=== PATIENT | male | born 1950 | race Caucasian/White ===

== ENCOUNTER → 2024-12-28 | Outpatient (CLI) | payer MEDICARE | END | disposition home or self-care (01) | LOC: LABWHC1 09:19 | PROVIDERS: ATTEND Urology | DX: R97.20 Elevated prostate specific antigen [PSA] (principal) | CPT/HCPCS: 36415; 84153; 84154 ==

== ENCOUNTER → 2025-01-25 | Outpatient (CLI) | payer MEDICARE ==
--- NOTE | 2025-01-25 08:16 | MR ---
EXAMINATION TYPE: MR Prostate wo/w con DATE OF EXAM: 01/25/2025 6:49 AM COMPARISON: None. CLINICAL INDICATION: Male, 74 years old with history of R97.20 ELEVATED PSA; Elevated PSA TECHNIQUE: Multi-planar, multi-sequence imaging of the pelvis is performed prior to and following the uncomplicated administration of bolus intravenous gadolinium. IV Contrast: 6 mL Gadobutrol Interpretive Criteria: PI-RADS v2.1 SERUM PSA: 10/2024=5.28, 10/2023=3.54 SURGICAL PATHOLOGY: No data available. FINDINGS: Prostatic dimensions: 5.2 x 6.9 x 4.4 cm. Ellipsoid Volume:82.66 (PSA density=0.06 ng/mL/mL) CENTRAL GLAND (Central and Transition Zones/CZ+TZ): Multiple bilateral, heterogenous appearing hypertrophic stromal nodules, without suspicious lesion. M edian lobe hypertrophy with protrusion into the base of the bladder. (PI-RADS 2) PERIPHERAL ZONE (PZ): Bilateral linear, indistinct wedgelike areas of low ADC, and low T2 signal, No evidence of masslike a bnormality, or localized perfusional hypervascularity, to further suggest a focus of clinically signi ficant prostate cancer. (PI-RADS 2) SEMINAL VESICLES (SV): Symmetric and unremarkable. PERIPROSTATIC TISSUES: Unremarkable. LYMPH NODES: No enlarged pelvic lymph node. REMAINING PELVIS: Bladder wall is within normal limits given distention. No abnormal free or organized intrapelvic fluid collection. No pathologic bowel dilation or mural thickening. No hernia visualized, there are fatty changes to the inguinal canals right greater than left. Large amount stool throughout the visualized colon. OSSEOUS STRUCTURES: No suspicious osseous abnormality. IMPRESSION: 1. No specific features for high-risk prostate cancer. Maximum PI-RADS score: 2. 2. Substantial BPH, estimated gland volume 82.66 mL. 3. No suspicious osseous lesion. No lymphadenopathy. No evidence of prostate adenocarcinoma involving the periprostatic tissues. [facility], , 01/25/2025 8:13 AM
== END | disposition home or self-care (01) ==
LOC: RADMRIMAIN 05:56
PROVIDERS: ATTEND Urology
DX: N40.0 Benign prostatic hyperplasia without lower urinary tract symptoms (principal); R97.20 Elevated prostate specific antigen [PSA]
CPT/HCPCS: 72197; A9585

== ENCOUNTER → 2025-04-05 | Day surgery (SDC) | payer MEDICARE ==
[2025-04-01 12:49] VITALS: BMI 19.4
[~2025-04-05] MED LIST: HYDROcodone/APAP 5-325MG 1 EACH TAB PO PRN; LIDOCAINE 1% INJ 10MG/ML (20 ML MDV) ONE; MIDAZOLAM 2 MG/2 ML VIAL ONE; NALOXONE 0.4 MG/ML 1 ML VIAL IV PRN; PHENYLEPHRINE 10 MG/ML VIAL ONE; PROPOFOL 10 MG/ML 20 ML VIAL IV ONE; Pre Op ABX Message 1 EACH MISC MISCELLANE ONE; fentaNYL (PF) 50 MCG/ML 2 ML AMP ONE
[2025-04-05] MEDS: IV FLUID CONTINUATION 1,000 ML IV ONE (10:28)
[2025-04-05] MEDS: ACETAMINOPHEN TAB 500 MG TAB PO PRN (10:54)
[2025-04-05] MEDS: HEPARIN SODIUM,PORCINE 5,000 UNIT/ML 1 ML VIAL SQ PRN (10:55)
[2025-04-05] MEDS: DEXAMETHASONE SOD PHOSPHATE 4 MG/ML 1 ML VIAL IVP STA (10:56)
[2025-04-05] MEDS: ONDANSETRON 4 MG/2 ML VIAL IVP STA (10:56)
--- NOTE | 2025-04-05 12:06 | P.GSHP ---
History of Present Illness H&P Date: 04/05/25 Chief Complaint: Pancreatic cancer 75-year-old male here for Port-A-Cath placement. Patient was recently diagnosed with pancreatic cancer. Will be starting neoadjuvant chemotherapy soon. He has not had a port previously. Past Medical History Past Medical History: Cancer, Eye Disorder, Hyperlipidemia, Hypertension, Prostate Disorder Additional Past Medical History / Comment(s): Current pancreatic cancer. Leaky valve, Dr Sparks watching. Glaucoma and catarcats. Vertigo. Enlarged prostate. History of Any Multi-Drug Resistant Organisms: None Reported Additional Past Surgical History / Comment(s): Vasectomy, cysts removed from hand. Past Anesthesia/Blood Transfusion Reactions: No Reported Reaction Additional Past Anesthesia/Blood Transfusion Reaction / Comment(s): Vertigo. Smoking Status: Former smoker - Past Family History Mother Family Medical History: No Reported History Medications and Allergies Home Medications Medication Instructions Recorded Confirmed Type Ascorbic Acid [Vitamin C] 500 mg PO DAILY 04/01/25 04/05/25 History Aspirin [Adult Low Dose Aspirin EC] 81 mg PO HS 04/01/25 04/05/25 History Cholecalciferol [Vitamin D3 (25 75 mcg PO DAILY 04/01/25 04/05/25 History Mcg = 1000 Iu)] Latanoprost [Xelpros] 1 drop BOTH EYES DAILY 04/01/25 04/05/25 History Losartan [Cozaar] 50 mg PO DAILY 04/01/25 04/05/25 History Multivitamins, Thera [Multivitamin 1 tab PO DAILY 04/01/25 04/05/25 History (formulary)] Simvastatin 10 mg PO HS 04/01/25 04/05/25 History Tamsulosin [Flomax] 0.4 mg PO DAILY 04/01/25 04/05/25 History Timolol 0.25% Ophth Soln [Timoptic 1 drop BOTH EYES DAILY 04/01/25 04/05/25 History 0.25% Ophth Soln] Vitamin E (Dl,Tocopheryl Acet) 400 unit PO DAILY 04/01/25 04/05/25 History [Vitamin E (400 Iu = 180 mg)] amLODIPine BESYLATE 10 mg PO DAILY 04/01/25 04/05/25 History Allergies Allergy/AdvReac Type Severity Reaction Status Date / Time No Known Allergies Allergy Verified 04/05/25 10:30 Surgical - Exam Vital Signs Temp Pulse Resp BP Pulse Ox 97 F L 68 16 132/78 100 04/05/25 10:29 04/05/25 10:29 04/05/25 10:29 04/05/25 10:04/05/25 10:29 Physical exam: General: Well-developed, well-nourished HEENT: Normocephalic, sclerae mild icteric Abdomen: Nontender, nondistended Extremities: No edema Neuro: Alert and oriented Assessment and Plan (1) Pancreatic cancer Narrative/Plan: Will proceed with Port-A-Cath placement at this time. Risks of bleeding, infection, DVT, pneumothorax, catheter malfunction, anesthesia related complications were discussed. The patient understands and wishes to proceed. Current Visit: Yes Status: Acute Code(s): C25.9 - MALIGNANT NEOPLASM OF PANCREAS, UNSPECIFIED SNOMED Code(s): 312151779
[2025-04-05] MEDS: BUPIVACAINE (PF) 0.25% 30 ML VIAL SQ ONE ×2 (12:38)
--- NOTE | 2025-04-05 12:57 | FL ---
EXAMINATION TYPE: FL guided central line placemt DATE OF EXAM: 04/05/2025 12:52 PM COMPARISON: Pre Operative Images if available both CT/MRI or plain film CLINICAL INDICATION: Male, 75 years old with history of Port-A-Cath Insertion; TECHNIQUE: FL guided central line placemt, multiple fluoroscopic images provided for procedure. DAP: 0.1614 mGym2 Gycm2 uGym2 cGycm2 or equivalent. FINDINGS: Fluoroscopic imaging for Port-A-Cath insertion no evidence for pneumothorax. Multilevel degeneration changes of the spine. IMPRESSION: 1. No evidence for intraoperative complication. 2. Please see the operative/procedural note for further details. [facility], , 04/05/2025 12:55 PM
--- NOTE | 2025-04-05 12:59 | P.OP ---
Date of Procedure: 04/05/25 Procedure(s) Performed: PREOPERATIVE DIAGNOSIS: Pancreatic cancer POSTOPERATIVE DIAGNOSIS: Same PROCEDURE: Port-A-Cath placement with fluoroscopic and ultrasound guidance SURGEON: Margaret EBL: Minimal ANESTHESIA: 5 cc COMPLICATIONS: None OPERATIVE PROCEDURE: Patient was brought and placed on the operative table in the supine position. The patient was placed under general anesthesia at that time. The chest and neck were prepped and draped in usual sterile fashion. The ultrasound probe was used to identify the location of the right internal jugular vein. The skin was localized with lidocaine. The Seldinger needle was advanced into the IJ under ultrasound guidance. The wire was advanced through the needle under fluoroscopic guidance into the superior vena cava. A port pocket was created in the right infraclavicular location. The catheter was tunneled from the wire entrance site to the port pocket. The port was then connected to the catheter. The dilator introducer was threaded over the guidewire. The guidewire and dilator were then removed. The catheter was advanced through the introducer and introducer was then removed. The tip was seen to be in the right atrial junction via fluoroscopy. A picture of the radiograph showing the tip of the catheter was taken. Port was flushed with both saline and a Hep-Lock solution. There was good flow both in and out of the port. The port was sutured in underlying tissues using 3-0 silk sutures. The subcutaneous tissues were reapproximated using 3-0 Vicryl sutures and the skin at both locations using 4-0 Monocryl sutures. Skin glue and sterile dressings then applied. DISPOSITION: Stable to recovery room
[2025-04-05 13:00] VITALS: TEMP 96.9
--- NOTE | 2025-04-05 13:48 | XR ---
EXAMINATION TYPE: XR chest 1V confirm line plcmt DATE OF EXAM: 04/05/2025 1:21 PM COMPARISON: None CLINICAL INDICATION: Male, 75 years old with history of Check line placement; [facility] TECHNIQUE: XR chest 1V confirm line plcmt Frontal view of the chest. FINDINGS: Lungs/Pleura: There is no evidence of pleural effusion, focal consolidation, or pneumothorax. Pulmonary vascularity: Unremarkable. Heart/mediastinum: Cardiomediastinal silhouette is unremarkable. Musculoskeletal: No acute osseous pathology. Other findings: None Lines/Tubes: Gurior-v-Eoej projecting over the right hemithorax with distal tip at the cavoatrial junction. IMPRESSION: No acute cardiopulmonary disease/process. [facility], , 04/05/2025 1:46 PM
[2025-04-05 14:07] VITALS: BP 126/63; PULSE 64; RESP 18
== END ==
LOC: OR 09:59
PROVIDERS: ATTEND Surgery
DX: C25.9 Malignant neoplasm of pancreas, unspecified (principal); Z45.2 Encounter for adjustment and management of vascular access device; E78.5 Hyperlipidemia, unspecified; I10 Essential (primary) hypertension; N40.0 Benign prostatic hyperplasia without lower urinary tract symptoms; Z87.891 Personal history of nicotine dependence
CPT/HCPCS: 77001; 36561; C1788; J2250; J1644; J1100; J2405; J2003; J3010; J1642; J2704; J2371; J0665

== ENCOUNTER 2025-05-03 23:11 | Emergency (ER) | payer MEDICARE ==
[2025-05-03 23:17] VITALS: TEMP 97.7
--- NOTE | 2025-05-04 00:04 | ED ---
Male Urogenital HPI - General Chief complaint: Urogenital Stated complaint: Urine Retention Time Seen by Provider: 05/04/25 00:03 Source: patient, RN notes reviewed Mode of arrival: ambulatory Limitations: no limitations - History of Present Illness Initial comments: 75-year-old male accompanied by his presenting to the ER for evaluation of urinary retention. Patient reports he was recently admitted to [facility] for a pancreatic stent placement as he has known pancreatic cancer. He is scheduled to follow-up with Dr. Shaw on Saturday to start chemotherapy. Patient reports throughout admission he was having difficulty with urination for which Marcano catheter was placed. He was ultimately discharged with this and instructed to follow-up with urology. Patient has a history of enlarged prostate and does take Flomax daily. He was seen by Dr. Rosado on 04-30-2025. Marcano catheter was replaced and patient was instructed to remove Marcano catheter himself this morning. He states he removed it on his own at 10 AM. Since then he has been having very little urine output. He states he has been urinating 2 to 4 ounces every approximately 30 minutes. He does have an urge to urinate and is endorsing lower abdominal discomfort. Patient denies any fevers, chills, nausea, vomiting, back or flank pain, hematuria, c onstipation/diarrhea, chest pain, shortness of breath or dizziness. - Related Data Home Medications Medication Instructions Recorded Confirmed Ascorbic Acid [Vitamin C] 500 mg PO DAILY 04/01/25 04/05/25 Aspirin [Adult Low Dose Aspirin EC] 81 mg PO HS 04/01/25 04/05/25 Cholecalciferol [Vitamin D3 (25 75 mcg PO DAILY 04/01/25 04/05/25 Mcg = 1000 Iu)] Latanoprost [Xelpros] 1 drop BOTH EYES DAILY 04/01/25 04/05/25 Losartan [Cozaar] 50 mg PO DAILY 04/01/25 04/05/25 Multivitamins, Thera [Multivitamin 1 tab PO DAILY 04/01/25 04/05/25 (formulary)] Simvastatin 10 mg PO HS 04/01/25 04/05/25 Tamsulosin [Flomax] 0.4 mg PO DAILY 04/01/25 04/05/25 Timolol 0.25% Ophth Soln [Timoptic 1 drop BOTH EYES DAILY 04/01/25 04/05/25 0.25% Ophth Soln] Vitamin E (Dl,Tocopheryl Acet) 400 unit PO DAILY 04/01/25 04/05/25 [Vitamin E (400 Iu = 180 mg)] amLODIPine BESYLATE 10 mg PO DAILY 04/01/25 04/05/25 Previous Rx's Medication Instructions Recorded Cephalexin [Keflex] 500 mg PO Q6HR #40 cap 05/04/25 Allergies Allergy/AdvReac Type Severity Reaction Status Date / Time No Known Allergies Allergy Verified 05/03/25 23:16 Review of Systems ROS Statement: Those systems with pertinent positive or pertinent negative responses have been documented in the HPI. ROS Other: All systems not noted in ROS Statement are negative. Past Medical History Past Medical History: Cancer, Eye Disorder, Hyperlipidemia, Hypertension, Prostate Disorder Additional Past Medical History / Comment(s): Current pancreatic cancer. Leaky valve, Dr Sparks watching. Glaucoma and catarcats. Vertigo. Enlarged prostate. History of Any Multi-Drug Resistant Organisms: None Reported Past Surgical History: Heart Catheterization With Stent Additional Past Surgical History / Comment(s): Vasectomy, cysts removed from hand. Past Anesthesia/Blood Transfusion Reactions: No Reported Reaction Additional Past Anesthesia/Blood Transfusion Reaction / Comment(s): Vertigo. Past Psychological History: No Psychological Hx Reported Smoking Status: Former smoker - Past Family History Mother Family Medical History: No Reported History General Exam Limitations: no limitations General appearance: alert, in no apparent distress Respiratory exam: Present: normal lung sounds bilaterally. Absent: respiratory distress, wheezes, rales, rhonchi, stridor Cardiovascular Exam: Present: regular rate, normal rhythm, normal heart sounds. Absent: systolic murmur, diastolic murmur, rubs, gallop, clicks GI/Abdominal exam: Present: soft, tenderness (Mild suprapubic), normal bowel sounds Neurological exam: Present: alert, oriented X3, CN II-XII intact Skin exam: Present: warm, dry, intact, normal color. Absent: rash Course Vital Signs 05/03/25 05/04/25 23:13 02:27 Temperature 97.7 F Pulse Rate 94 80 Respiratory 18 17 Rate Blood Pressure 153/81 150/80 O2 Sat by Pulse 98 97 Oximetry Medical Decision Making - Medical Decision Making Was pt. sent in by a medical professional or institution (GIFTY Otto, BOAT DRIVER, urgent care, hospital, or halfway...) When possible be specific @ -No Did you speak to anyone other than the patient for history (EMS, parent, family, police, friend...)? What history was obtained from this source @ -His , bedside, aiding in HPI past medical history. Did you review nursing and triage notes (agree or disagree)? Why? @ -I reviewed and agree with nursing and triage notes Were old charts reviewed (outside hosp., previous admission, EMS record, old EKG, old radiological studies, urgent care reports/EKG's, halfway records)? Report findings @ -No old charts were reviewed Differential Diagnosis (chest pain, altered mental status, abdominal pain women, abdominal pain men, vaginal bleeding, weakness, fever, dyspnea, syncope, headache, dizziness, GI bleed, back pain, seizure, CVA, palpatations, mental health, musculoskeletal)? @ -UTI, urinary retention, BPH, STD... This list is not meant to be all- inclusive EKG interpreted by me (3pts min.). @ -None done X-rays interpreted by me (1pt min.). @ -None done CT interpreted by me (1pt min.). @ -None done U/S interpreted by me (1pt. min.). @ -None done What testing was considered but not performed or refused? (CT, X-rays, U/S, la bs)? Why? @ -None What meds were considered but not given or refused? Why? @ -None Did you discuss the management of the patient with other professionals (professionals i.e. , GIFTY, BOAT DRIVER, lab, RT, psych nurse, social services counselor, camera systems engineer, teacher, assistant chief nursing officer, continuous pillowcase cutter)? Give summary @ -No Was smoking cessation discussed for >3mins.? @ -No Was critical care preformed (if so, how long)? @ -No Were there social determinants of health that impacted care today? How? (Homelessness, low income, unemployed, alcoholism, drug addiction, transportation, low edu. Level, literacy, decrease access to med. care, penitentiary, rehab)? @ -No Was there de-escalation of care discussed even if they declined (Discuss DNR or withdrawal of care, Hospice)? DNR status @ -No What co-morbidities impacted this encounter? (DM, HTN, Smoking, COPD, CAD, Cancer, CVA, ARF, Chemo, Hep., AIDS, mental health diagnosis, sleep apnea, morbid obesity)? @ -Pancreatic cancer scheduled to start chemotherapy, BPH Was patient admitted / discharged? Hospital course, mention meds given and route, prescriptions, significant lab abnormalities, going to OR and other pertinent info. @ -Discharge. 75-year-old male presented to ER for evaluation of urinary retention. Vital signs stable. Patient in no signs acute distress nontoxic- appearing. Postvoid bladder scan greater than 300 mL for which a Marcano catheter was placed with greater than 700 mL of output. Urinalysis obtained showing moderate WBC clumps, greater than 182 WBCs and large leukocyte esterases these findings can indicate infection for which patient will be started on Keflex, first dose in the emergency department. Urine sent for culture. Patient discharged with Marcano catheter in place. I advised close follow-up with urology, referral given. Strict return parameters discussed. Patient discharged in stable condition with follow-up to PCP, oncology and urology. Patient and patient's are eager for discharge upon reevaluation. Patient patient's Cem expressed understanding and agreement with care plan. Case discussed with ED attending Dr. Max. Undiagnosed new problem with uncertain prognosis? @ -No Drug Therapy requiring intensive monitoring for toxicity (Heparin, Nitro, Insulin, Cardizem)? @ -No Were any procedures done? @ -No Diagnosis/symptom? @ -Urinary retention/UTI Acute, or Chronic, or Acute on Chronic? @ -Acute Uncomplicated (without systemic symptoms) or Complicated (systemic symptoms)? @ -Uncomplicated Side effects of treatment? @ -No Exacerbation, Progression, or Severe Exacerbation? @ -No Poses a threat to life or bodily function? How? (Chest pain, USA, VT, pneumonia, PE, COPD, DKA, ARF, appy, cholecystitis, CVA, Diverticulitis, Homicidal, Suicidal, threat to staff... and all critical care pts) @ -Patient has known cancer, yes - Lab Data Lab Results 05/04/25 Range/Units 00:23 Urine Color Colorless Urine Appearance Cloudy (Clear) Urine pH 5.5 (5.0-8.0) Ur Specific [place] 1.006 (1.001-1.035) Urine Protein Negative (Negative) Urine Glucose (UA) Negative (Negative) Urine Ketones Negative (Negative) Urine Blood Moderate H (Negative) Urine Nitrite Negative (Negative) Urine Bilirubin Negative (Negative) Urine Urobilinogen <2.0 (<2.0) mg/dL Ur Leukocyte Esterase Large H (Negative) Urine RBC 4 (0-5) /hpf Urine WBC >182 H (0-5) /hpf Urine WBC Clumps Moderate H (None) /hpf Ur Squamous Epith Cells <1 (0-4) /hpf Urine Bacteria Rare H (None) /hpf Hyaline Casts 3 H (0-2) /lpf Urine Mucus Rare H (None) /hpf Urine Yeast (Budding) Occasional H (None) /hpf Disposition Clinical Impression: Urinary retention Disposition: HOME SELF-CARE Condition: Stable Instructions (If sedation given, give patient instructions): Urinary Retention in Men (ED) Additional Instructions: Follow-up with urology and specialist as scheduled. Return to the ER for any new or worse concerns Prescriptions: Cephalexin [Keflex] 500 mg PO Q6HR #40 cap Is patient prescribed a controlled substance at d/c from ED?: No Referrals: Travis Zurita [Primary Care Provider] - 1-2 days Lalo Herrera MD [STAFF PHYSICIAN] - 1-2 days Time of Disposition: 02:09
[2025-05-04 01:38] LABS: Appearance,Urine Cloudy (Clear); Bacteria,Urine Rare /hpf; Bilirubin,Urine Negative (Negative); Blood,Urine Moderate (Negative); Budding Yeast,Urine Occasional /hpf; Color,Urine Colorless; Glucose,Urine (UA) Negative (Negative); Hyaline Casts,Urine 3 /lpf (0-2); Ketones,Urine Negative (Negative); Leukocyte Esterase,Urine Large (Negative); Mucus,Urine Rare /hpf; Nitrite,Urine Negative (Negative); PH, Urine 5.5 (5.0-8.0); Protein,Urine Negative (Negative); RBC,Urine 4 /hpf (0-5); Specific Gravity,Urine 1.006 (1.001-1.035); Squamous Epithelial Cell,Urine <1 /hpf (0-4); Urobilinogen,Urine <2.0 mg/dL (<2.0); WBC,Urine >182 /hpf (0-5)
[2025-05-04 02:28] VITALS: BP 150/80; PULSE 80; RESP 17
[2025-05-04] MEDS: CEPHALEXIN 500 MG CAP PO STA (02:28)
== END 2025-05-04 02:29 | disposition home or self-care (01) ==
LOC: EC 23:11
DX: R33.9 Retention of urine, unspecified (principal); N40.1 Benign prostatic hyperplasia with lower urinary tract symptoms; Z87.891 Personal history of nicotine dependence; Z85.07 Personal history of malignant neoplasm of pancreas
CPT/HCPCS: 51702; 51798; 81001; 87086; 99284

== ENCOUNTER 2025-05-07 23:37 | Emergency (ER) | payer MEDICARE ==
[2025-05-07 23:41] VITALS: BP 134/82; PULSE 91; RESP 18; TEMP 97.7
--- NOTE | 2025-05-08 00:30 | ED ---
General Adult HPI - General Chief complaint: Urogenital Stated complaint: Cath issues Time Seen by Provider: 05/07/25 23:56 Source: patient Mode of arrival: ambulatory Limitations: no limitations - History of Present Illness Initial comments: 75-year-old male reporting issues with his Marcano catheter. Patient follows with Dr. Rosado, currently has Marcano catheter in place for urinary retention. Patient reports that starting this evening the patient has had urine leaking around the Marcano. He is having no pain. No fever. No nausea or vomiting. No flank discomfort. States that he does get some intermittent pink to light red blood in his urine, particularly after being active. - Related Data Home Medications Medication Instructions Recorded Confirmed Ascorbic Acid [Vitamin C] 500 mg PO DAILY 04/01/25 04/05/25 Aspirin [Adult Low Dose Aspirin EC] 81 mg PO HS 04/01/25 04/05/25 Cholecalciferol [Vitamin D3 (25 75 mcg PO DAILY 04/01/25 04/05/25 Mcg = 1000 Iu)] Latanoprost [Xelpros] 1 drop BOTH EYES DAILY 04/01/25 04/05/25 Losartan [Cozaar] 50 mg PO DAILY 04/01/25 04/05/25 Multivitamins, Thera [Multivitamin 1 tab PO DAILY 04/01/25 04/05/25 (formulary)] Simvastatin 10 mg PO HS 04/01/25 04/05/25 Tamsulosin [Flomax] 0.4 mg PO DAILY 04/01/25 04/05/25 Timolol 0.25% Ophth Soln [Timoptic 1 drop BOTH EYES DAILY 04/01/25 04/05/25 0.25% Ophth Soln] Vitamin E (Dl,Tocopheryl Acet) 400 unit PO DAILY 04/01/25 04/05/25 [Vitamin E (400 Iu = 180 mg)] amLODIPine BESYLATE 10 mg PO DAILY 04/01/25 04/05/25 Previous Rx's Medication Instructions Recorded Cephalexin [Keflex] 500 mg PO Q6HR #40 cap 05/04/25 Allergies Allergy/AdvReac Type Severity Reaction Status Date / Time No Known Allergies Allergy Verified 05/07/25 23:41 Review of Systems ROS Statement: Those systems with pertinent positive or pertinent negative responses have been documented in the HPI. ROS Other: All systems not noted in ROS Statement are negative. Past Medical History Past Medical History: Cancer, Eye Disorder, Hyperlipidemia, Hypertension, Prostate Disorder Additional Past Medical History / Comment(s): Current pancreatic cancer. Leaky valve, Dr Sparks watching. Glaucoma and catarcats. Vertigo. Enlarged prostate. History of Any Multi-Drug Resistant Organisms: None Reported Past Surgical History: Heart Catheterization With Stent Additional Past Surgical History / Comment(s): Vasectomy, cysts removed from hand. Past Anesthesia/Blood Transfusion Reactions: No Reported Reaction Additional Past Anesthesia/Blood Transfusion Reaction / Comment(s): Vertigo. Past Psychological History: No Psychological Hx Reported Smoking Status: Former smoker Past Alcohol Use History: None Reported Past Drug Use History: None Reported - Past Family History Mother Family Medical History: No Reported History General Exam Limitations: no limitations General appearance: alert, in no apparent distress Head exam: Present: atraumatic, normocephalic, normal inspection Eye exam: Present: normal appearance, EOMI Neck exam: Present: normal inspection. Absent: meningismus Respiratory exam: Absent: respiratory distress Cardiovascular Exam: Present: regular rate Neurological exam: Present: alert, oriented X3 Psychiatric exam: Present: normal affect, normal mood Skin exam: Present: warm, dry, normal color Course Vital Signs 05/07/25 23:39 Temperature 97.7 F Pulse Rate 91 Respiratory 18 Rate Blood Pressure 134/82 O2 Sat by Pulse 99 Oximetry Medical Decision Making - Medical Decision Making Was pt. sent in by a medical professional or institution (GIFTY Otto, METROLOGY SPECIALIST, urgent care, hospital, or assisted...) When possible be specific @ -No Did you speak to anyone other than the patient for history (EMS, parent, family, police, friend...)? What history was obtained from this source @ -No Did you review nursing and triage notes (agree or disagree)? Why? @ -I reviewed and agree with nursing and triage notes Were old charts reviewed (outside hosp., previous admission, EMS record, old EKG, old radiological studies, urgent care reports/EKG's, assisted records)? Report findings @ -No old charts were reviewed Differential Diagnosis (chest pain, altered mental status, abdominal pain women, abdominal pain men, vaginal bleeding, weakness, fever, dyspnea, syncope, headache, dizziness, GI bleed, back pain, seizure, CVA, palpatations, mental health, musculoskeletal)? @ -Differential includes Marcano catheter occlusion, stone, malignancy, not an all-inclusive list EKG interpreted by me (3pts min.). @ -As above X-rays interpreted by me (1pt min.). @ -None done CT interpreted by me (1pt min.). @ -None done U/S interpreted by me (1pt. min.). @ -None done What testing was considered but not performed or refused? (CT, X-rays, U/S, labs)? Why? @ -None What meds were considered but not given or refused? Why? @ -None Did you discuss the management of the patient with other professionals (professionals i.e. Dr., PA, METROLOGY SPECIALIST, lab, RT, psych nurse, psychotherapist social worker, student education specialist, teacher, contracts officer, caser up)? Give summary @ -No Was smoking cessation discussed for >3mins.? @ -No Was critical care preformed (if so, how long)? @ -No Were there social determinants of health that impacted care today? How? (Homelessness, low income, unemployed, alcoholism, drug addiction, transportation, low edu. Level, literacy, decrease access to med. care, fpc, rehab)? @ -No Was there de-escalation of care discussed even if they declined (Discuss DNR or withdrawal of care, Hospice)? DNR status @ -No What co-morbidities impacted this encounter? (DM, HTN, Smoking, COPD, CAD, Cancer, CVA, ARF, Chemo, Hep., AIDS, mental health diagnosis, sleep apnea, morbid obesity)? @ -None Was patient admitted / discharged? Hospital course, mention meds given and route, prescriptions, significant lab abnormalities, going to OR and other pertinent info. @ -75-year-old male presenting with chief complaint of urine leaking around his Marcano catheter. Patient is having no pain fever or vomiting. Patient's Marcano catheter is changed and he has immediate drainage into the bag. He will follow- up with his urologist at his upcoming appointment on Saturday. Follow-up with PCP. Report back to ER with any new or worsening symptoms. Discussed return parameters and answered all questions. Patient conveyed verbal understanding and agreed to the plan. I discussed this case in detail with my attending Dr. Pickett Undiagnosed new problem with uncertain prognosis? @ -No Drug Therapy requiring intensive monitoring for toxicity (Heparin, Nitro, Insulin, Cardizem)? @ -No Were any procedures done? @ -No Diagnosis/symptom? @ -Marcano catheter occlusion Acute, or Chronic, or Acute on Chronic? @ -Acute Uncomplicated (without systemic symptoms) or Complicated (systemic symptoms)? @ -Uncomplicated Side effects of treatment? @ -No Exacerbation, Progression, or Severe Exacerbation? @ -No Poses a threat to life or bodily function? How? (Chest pain, [place], [place], pneumonia, PE, COPD, DKA, ARF, appy, cholecystitis, CVA, Diverticulitis, Homicidal, Suicidal, threat to staff... and all critical care pts) @ -Unlikely Disposition Clinical Impression: Retention of urine due to occlusion of Marcano catheter Disposition: HOME SELF-CARE Condition: Good Additional Instructions: Follow-up with your urologist. Report back to ER with any new or worsening symptoms. Is patient prescribed a controlled substance at d/c from ED?: No Referrals: Travis Zurita [Primary Care Provider] - 1-2 days Time of Disposition: 00:28
== END 2025-05-08 00:38 | disposition home or self-care (01) ==
LOC: EC 23:37
DX: R33.8 Other retention of urine (principal); Z87.891 Personal history of nicotine dependence
CPT/HCPCS: 51702; 99283

== ENCOUNTER 2025-05-09 10:00 | Emergency (ER) | payer MEDICARE ==
--- NOTE | 2025-05-09 12:46 | ED ---
Male Urogenital HPI - General Chief complaint: Urogenital Stated complaint: Urogenital Time Seen by Provider: 05/09/25 11:39 Source: patient, RN notes reviewed Mode of arrival: ambulatory Limitations: no limitations - History of Present Illness Initial comments: 75-year-old male with history of BPH presented to emergency department with complaints of Marcano catheter not draining appropriately. Patient states that he had Marcano catheter placed earlier in the week and this morning he noticed that urine was not draining as well as it normally does. Patient denies abdominal or flank pain. He is currently on Keflex for infection. - Related Data Home Medications Medication Instructions Recorded Confirmed Ascorbic Acid [Vitamin C] 500 mg PO DAILY 04/01/25 04/05/25 Aspirin [Adult Low Dose Aspirin EC] 81 mg PO HS 04/01/25 04/05/25 Cholecalciferol [Vitamin D3 (25 75 mcg PO DAILY 04/01/25 04/05/25 Mcg = 1000 Iu)] Latanoprost [Xelpros] 1 drop BOTH EYES DAILY 04/01/25 04/05/25 Losartan [Cozaar] 50 mg PO DAILY 04/01/25 04/05/25 Multivitamins, Thera [Multivitamin 1 tab PO DAILY 04/01/25 04/05/25 (formulary)] Simvastatin 10 mg PO HS 04/01/25 04/05/25 Tamsulosin [Flomax] 0.4 mg PO DAILY 04/01/25 04/05/25 Timolol 0.25% Ophth Soln [Timoptic 1 drop BOTH EYES DAILY 04/01/25 04/05/25 0.25% Ophth Soln] Vitamin E (Dl,Tocopheryl Acet) 400 unit PO DAILY 04/01/25 04/05/25 [Vitamin E (400 Iu = 180 mg)] amLODIPine BESYLATE 10 mg PO DAILY 04/01/25 04/05/25 Previous Rx's Medication Instructions Recorded Cephalexin [Keflex] 500 mg PO Q6HR #40 cap 05/04/25 Sulfamethox-Tmp 800-160Mg [Bactrim 1 each PO Q12HR #20 tab 05/09/25 Ds] Allergies Allergy/AdvReac Type Severity Reaction Status Date / Time No Known Allergies Allergy Verified 05/09/25 10:16 Review of Systems ROS Statement: Those systems with pertinent positive or pertinent negative responses have been documented in the HPI. ROS Other: All systems not noted in ROS Statement are negative. Past Medical History Past Medical History: Cancer, Eye Disorder, Hyperlipidemia, Hypertension, Prostate Disorder Additional Past Medical History / Comment(s): Current pancreatic cancer. Leaky valve, Dr Sparks watching. Glaucoma and catarcats. Vertigo. Enlarged prostate. History of Any Multi-Drug Resistant Organisms: None Reported Past Surgical History: Heart Catheterization With Stent Additional Past Surgical History / Comment(s): Vasectomy, cysts removed from hand. Past Anesthesia/Blood Transfusion Reactions: No Reported Reaction Additional Past Anesthesia/Blood Transfusion Reaction / Comment(s): Vertigo. Past Psychological History: No Psychological Hx Reported Smoking Status: Former smoker Past Alcohol Use History: None Reported Past Drug Use History: None Reported - Past Family History Mother Family Medical History: No Reported History General Exam Limitations: no limitations General appearance: alert, in no apparent distress ENT exam: Present: normal exam, mucous membranes moist Neck exam: Present: normal inspection. Absent: tenderness, meningismus, lymphadenopathy Respiratory exam: Present: normal lung sounds bilaterally. Absent: respiratory distress, wheezes, rales, rhonchi, stridor Cardiovascular Exam: Present: regular rate, normal rhythm, normal heart sounds. Absent: systolic murmur, diastolic murmur, rubs, gallop, clicks GI/Abdominal exam: Present: soft, normal bowel sounds. Absent: distended, tenderness, guarding, rebound, rigid Extremities exam: Present: normal inspection, full ROM, normal capillary refill. Absent: tenderness, pedal edema, joint swelling, calf tenderness Back exam: Present: normal inspection. Absent: CVA tenderness (R), CVA tenderness (L) Course Vital Signs 05/09/25 05/09/25 10:14 15:01 Temperature 97.8 F 97.7 F Pulse Rate 75 69 Respiratory 20 18 Rate Blood Pressure 129/71 122/68 O2 Sat by Pulse 99 100 Oximetry Medical Decision Making - Medical Decision Making Was pt. sent in by a medical professional or institution (, PA, QUALITY CONTROL MICROBIOLOGIST, urgent care, hospital, or intermediate...) When possible be specific @ -No Did you speak to anyone other than the patient for history (EMS, parent, family, police, friend...)? What history was obtained from this source @ -No Did you review nursing and triage notes (agree or disagree)? Why? @ -I reviewed and agree with nursing and triage notes Were old charts reviewed (outside hosp., previous admission, EMS record, old EKG, old radiological studies, urgent care reports/EKG's, intermediate records)? Report findings @I reviewed urine culture growth from 05/03/2025 which revealed growth of Staphylococcus epidermidis. Differential Diagnosis (chest pain, altered mental status, abdominal pain women, abdominal pain men, vaginal bleeding, weakness, fever, dyspnea, syncope, headache, dizziness, GI bleed, back pain, seizure, CVA, palpatations, mental health, musculoskeletal)? @ -Marcano catheter blockage, urinary tract infection, nephrolithiasis, this list is not all inclusive EKG interpreted by me (3pts min.). @ -None X-rays interpreted by me (1pt min.). @ -None done CT interpreted by me (1pt min.). @ -None done U/S interpreted by me (1pt. min.). @ -None done What testing was considered but not performed or refused? (CT, X-rays, U/S, labs)? Why? @ -None What meds were considered but not given or refused? Why? @ -None Did you discuss the management of the patient with other professionals (professionals i.e. , PA, QUALITY CONTROL MICROBIOLOGIST, lab, RT, psych nurse, criminal justice social worker, it support technician, teacher, geospatial program management officer, oil field caser)? Give summary @ -No Was smoking cessation discussed for >3mins.? @ -No Was critical care preformed (if so, how long)? @ -No Were there social determinants of health that impacted care today? How? (Homelessness, low income, unemployed, alcoholism, drug addiction, transportation, low edu. Level, literacy, decrease access to med. care, prison, rehab)? @ -No Was there de-escalation of care discussed even if they declined (Discuss DNR or withdrawal of care, Hospice)? DNR status @ -No What co-morbidities impacted this encounter? (DM, HTN, Smoking, COPD, CAD, Cancer, CVA, ARF, Chemo, Hep., AIDS, mental health diagnosis, sleep apnea, morbid obesity)? @ -None Was patient admitted / discharged? Hospital course, mention meds given and route, prescriptions, significant lab abnormalities, going to OR and other pertinent info. @ -Discharge. 75-year-old male presents emergency room with urinary catheter not draining appropriately. Urinary catheter is flushed and urinalysis is concerning for continued infection of the urine. Patient's urine culture is growth positive for Staphylococcus epidermidis on 05/03/2025, Keflex is not a susceptible antibiotic for this bacteria therefore patient's antibiotic is switched to Bactrim. After patient's catheter has been flushed the catheter is draining appropriately. Recommend the patient follow-up as scheduled with urology. Return parameters have discussed. Case discussed with my attending Dr. Barber Undiagnosed new problem with uncertain prognosis? @ -No Drug Therapy requiring intensive monitoring for toxicity (Heparin, Nitro, Insulin, Cardizem)? @ -No Were any procedures done? @ -No Diagnosis/symptom? @ -Urinary catheter malfunction, urinary tract infection Acute, or Chronic, or Acute on Chronic? @ -Acute Uncomplicated (without systemic symptoms) or Complicated (systemic symptoms)? @ -uncomplicated Side effects of treatment? @ -No Exacerbation, Progression, or Severe Exacerbation? @ -No Poses a threat to life or bodily function? How? (Chest pain, [place], [place], pneumonia, PE, COPD, DKA, ARF, appy, cholecystitis, CVA, Diverticulitis, Homicidal, Suicidal, threat to staff... and all critical care pts) @ -No - Lab Data Lab Results 05/09/25 Range/Units 13:00 Urine Color Light Red Urine Appearance Clear (Clear) Urine pH 6.0 (5.0-8.0) Ur Specific [place] 1.006 (1.001-1.035) Urine Protein 1+ H (Negative) Urine Glucose (UA) Negative (Negative) Urine Ketones Negative (Negative) Urine Blood Large H (Negative) Urine Nitrite Negative (Negative) Urine Bilirubin Negative (Negative) Urine Urobilinogen <2.0 (<2.0) mg/dL Ur Leukocyte Esterase Large H (Negative) Urine RBC 157 H (0-5) /hpf Urine WBC 16 H (0-5) /hpf Calcium Oxalate Crystal Rare H (None) /hpf Urine Bacteria Rare H (None) /hpf Urine Mucus Rare H (None) /hpf Disposition Clinical Impression: UTI (urinary tract infection) Disposition: HOME SELF-CARE Condition: Stable Instructions (If sedation given, give patient instructions): Urinary Tract Infection in Men (ED) Additional Instructions: Please return to the Emergency Department if symptoms worsen or any other concerns. Prescriptions: Sulfamethox-Tmp 800-160Mg [Bactrim Ds] 1 each PO Q12HR #20 tab Is patient prescribed a controlled substance at d/c from ED?: No Referrals: Travis Zurita [Primary Care Provider] - 1-2 days Time of Disposition: 14:02
[2025-05-09 13:38] LABS: Appearance,Urine Clear (Clear); Bacteria,Urine Rare /hpf; Bilirubin,Urine Negative (Negative); Blood,Urine Large (Negative); Calcium Oxalate Crystals,Urine Rare /hpf; Color,Urine Light Red; Glucose,Urine (UA) Negative (Negative); Ketones,Urine Negative (Negative); Leukocyte Esterase,Urine Large (Negative); Mucus,Urine Rare /hpf; Nitrite,Urine Negative (Negative); Protein,Urine 1+ (Negative); RBC,Urine 157 /hpf (0-5); Specific Gravity,Urine 1.006 (1.001-1.035); Urobilinogen,Urine <2.0 mg/dL (<2.0); WBC,Urine 16 /hpf (0-5)
[2025-05-09 15:02] VITALS: BP 122/68; PULSE 69; RESP 18; TEMP 97.7
== END 2025-05-09 14:59 | disposition home or self-care (01) ==
LOC: EC 10:00
DX: N39.0 Urinary tract infection, site not specified (principal); T83.011A Breakdown (mechanical) of indwelling urethral catheter, initial encounter; Z87.891 Personal history of nicotine dependence
CPT/HCPCS: 81001; 99283

== ENCOUNTER 2025-05-15 20:46 | Emergency (ER) | payer MEDICARE ==
[2025-05-15 21:02] VITALS: RESP 18
--- NOTE | 2025-05-15 21:19 | ED ---
Male Urogenital HPI - General Chief complaint: Urogenital Stated complaint: urogenital Time Seen by Provider: 05/15/25 21:16 Source: patient, RN notes reviewed Mode of arrival: ambulatory Limitations: no limitations - History of Present Illness Initial comments: 75-year-old male presenting for Marcano catheter issue. States he has an indwelling Marcano catheter for urinary retention. He is following with Dr. Rosado. He is currently on Bactrim for urinary tract infection as well. States his catheter has not been draining properly for the past few hours which brought him to the ER. Denies burning, purulence, drainage. The plan is for him to remove the Marcano himself Saturday and follow-up with Dr. Rosado on Saturday - Related Data Home Medications Medication Instructions Recorded Confirmed Ascorbic Acid [Vitamin C] 500 mg PO DAILY 04/01/25 04/05/25 Aspirin [Adult Low Dose Aspirin EC] 81 mg PO HS 04/01/25 04/05/25 Cholecalciferol [Vitamin D3 (25 75 mcg PO DAILY 04/01/25 04/05/25 Mcg = 1000 Iu)] Latanoprost [Xelpros] 1 drop BOTH EYES DAILY 04/01/25 04/05/25 Losartan [Cozaar] 50 mg PO DAILY 04/01/25 04/05/25 Multivitamins, Thera [Multivitamin 1 tab PO DAILY 04/01/25 04/05/25 (formulary)] Simvastatin 10 mg PO HS 04/01/25 04/05/25 Tamsulosin [Flomax] 0.4 mg PO DAILY 04/01/25 04/05/25 Timolol 0.25% Ophth Soln [Timoptic 1 drop BOTH EYES DAILY 04/01/25 04/05/25 0.25% Ophth Soln] Vitamin E (Dl,Tocopheryl Acet) 400 unit PO DAILY 04/01/25 04/05/25 [Vitamin E (400 Iu = 180 mg)] amLODIPine BESYLATE 10 mg PO DAILY 04/01/25 04/05/25 Previous Rx's Medication Instructions Recorded Cephalexin [Keflex] 500 mg PO Q6HR #40 cap 05/04/25 Sulfamethox-Tmp 800-160Mg [Bactrim 1 each PO Q12HR #20 tab 05/09/25 Ds] Allergies Allergy/AdvReac Type Severity Reaction Status Date / Time No Known Allergies Allergy Verified 05/09/25 10:16 Review of Systems ROS Statement: Those systems with pertinent positive or pertinent negative responses have been documented in the HPI. ROS Other: All systems not noted in ROS Statement are negative. Past Medical History Past Medical History: Cancer, Eye Disorder, Hyperlipidemia, Hypertension, Prostate Disorder Additional Past Medical History / Comment(s): Current pancreatic cancer. Leaky valve, Dr Sparks watching. Glaucoma and catarcats. Vertigo. Enlarged prostate. History of Any Multi-Drug Resistant Organisms: None Reported Past Surgical History: Heart Catheterization With Stent Additional Past Surgical History / Comment(s): Vasectomy, cysts removed from hand. Past Anesthesia/Blood Transfusion Reactions: No Reported Reaction Additional Past Anesthesia/Blood Transfusion Reaction / Comment(s): Vertigo. Past Psychological History: No Psychological Hx Reported Smoking Status: Former smoker Past Alcohol Use History: None Reported Past Drug Use History: None Reported - Past Family History Mother Family Medical History: No Reported History General Exam Limitations: no limitations General appearance: alert, in no apparent distress Head exam: Present: atraumatic, normocephalic, normal inspection Eye exam: Present: normal appearance, PERRL, EOMI. Absent: scleral icterus, conjunctival injection, periorbital swelling exam: Present: normal inspection, other (Marcano catheter in place. Right opaque blood in Marcano catheter bag). Absent: urethral discharge Neurological exam: Present: alert, oriented X3 Psychiatric exam: Present: normal affect, normal mood Skin exam: Present: warm, dry, intact, normal color. Absent: rash Course Vital Signs 05/15/25 20:53 Temperature 98.1 F Pulse Rate 72 Respiratory 18 Rate Blood Pressure 121/66 O2 Sat by Pulse 100 Oximetry Medical Decision Making - Medical Decision Making Was pt. sent in by a medical professional or institution (, PA, RESTAURANT AREA MANAGER, urgent care, hospital, or halfway...) When possible be specific @ -No Did you speak to anyone other than the patient for history (EMS, parent, family, police, friend...)? What history was obtained from this source @ -No Did you review nursing and triage notes (agree or disagree)? Why? @ -I reviewed and agree with nursing and triage notes Were old charts reviewed (outside hosp., previous admission, EMS record, old EKG, old radiological studies, urgent care reports/EKG's, halfway records)? Report findings @ -No old charts were reviewed Differential Diagnosis (chest pain, altered mental status, abdominal pain women, abdominal pain men, vaginal bleeding, weakness, fever, dyspnea, syncope, headache, dizziness, GI bleed, back pain, seizure, CVA, palpatations, mental health, musculoskeletal)? @ -Not applicable EKG interpreted by me (3pts min.). @ -None X-rays interpreted by me (1pt min.). @ -None done CT interpreted by me (1pt min.). @ -None done U/S interpreted by me (1pt. min.). @ -None done What testing was considered but not performed or refused? (CT, X-rays, U/S, labs)? Why? @ -None What meds were considered but not given or refused? Why? @ -None Did you discuss the management of the patient with other professionals (professionals i.e. , PA, RESTAURANT AREA MANAGER, lab, RT, psych nurse, social worker psychiatric, millwork estimator, teacher, commercial loan collection officer, manager case)? Give summary @ -No Was smoking cessation discussed for >3mins.? @ -No Was critical care preformed (if so, how long)? @ -No Were there social determinants of health that impacted care today? How? (Homelessness, low income, unemployed, alcoholism, drug addiction, transportation, low edu. Level, literacy, decrease access to med. care, long term, rehab)? @ -No Was there de-escalation of care discussed even if they declined (Discuss DNR or withdrawal of care, Hospice)? DNR status @ -No What co-morbidities impacted this encounter? (DM, HTN, Smoking, COPD, CAD, Ca ncer, CVA, ARF, Chemo, Hep., AIDS, mental health diagnosis, sleep apnea, morbid obesity)? @ -None Was patient admitted / discharged? Hospital course, mention meds given and route, prescriptions, significant lab abnormalities, going to OR and other pertinent info. @ -Discharge. 75-year-old male presenting for Marcano catheter issue. He is asymptomatic. Marcano catheter was flushed by CHRIS Sandoval and afterwards Marcano catheter was draining appropriately. Urine culture sent. Advised to follow-up for urology appointment on Saturday. Return precautions discussed. Case was discussed with my ED attending Dr. Pickett. Undiagnosed new problem with uncertain prognosis? @ -No Drug Therapy requiring intensive monitoring for toxicity (Heparin, Nitro, Insulin, Cardizem)? @ -No Were any procedures done? @ -No Diagnosis/symptom? @ -Marcano catheter issue Acute, or Chronic, or Acute on Chronic? @ -Acute Uncomplicated (without systemic symptoms) or Complicated (systemic symptoms)? @ -Uncomplicated Side effects of treatment? @ -No Exacerbation, Progression, or Severe Exacerbation? @ -No Poses a threat to life or bodily function? How? (Chest pain, [place], [place], pneumonia, PE, COPD, DKA, ARF, appy, cholecystitis, CVA, Diverticulitis, Homicidal, Suicidal, threat to staff... and all critical care pts) @ -No Disposition Clinical Impression: Marcano catheter problem Disposition: HOME SELF-CARE Condition: Stable Additional Instructions: Follow-up for urology appointment on Saturday. Please return to the Emergency Department if symptoms worsen or any other concerns. Is patient prescribed a controlled substance at d/c from ED?: No Referrals: Travis Zurita [Primary Care Provider] - 1-2 days Time of Disposition: 21:35
[2025-05-15 21:45] VITALS: BP 119/72; PULSE 75; TEMP 98
[2025-05-15 22:14] LABS: Appearance,Urine Clear (Clear); Bacteria,Urine Rare /hpf; Bilirubin,Urine Negative (Negative); Blood,Urine Large (Negative); Calcium Oxalate Crystals,Urine Rare /hpf; Color,Urine Light Red; Glucose,Urine (UA) Negative (Negative); Hyaline Casts,Urine 1 /lpf (0-2); Ketones,Urine Negative (Negative); Leukocyte Esterase,Urine Trace (Negative); Mucus,Urine Rare /hpf; Nitrite,Urine Negative (Negative); Protein,Urine 1+ (Negative); RBC,Urine 6 /hpf (0-5); Specific Gravity,Urine 1.003 (1.001-1.035); Urobilinogen,Urine <2.0 mg/dL (<2.0); WBC,Urine 2 /hpf (0-5)
== END 2025-05-15 21:45 | disposition home or self-care (01) ==
LOC: EC 20:46
DX: T83.098A Other mechanical complication of other urinary catheter, initial encounter (principal); Z87.891 Personal history of nicotine dependence
CPT/HCPCS: 51702; 81001; 99283

== ENCOUNTER 2025-06-10 11:27 | Day surgery (SDC) | payer MEDICARE ==
--- NOTE | 2025-06-10 08:42 | P.GSHP ---
History of Present Illness H&P Date: 06/10/25 Chief Complaint: Urinary retention The patient is a 75-year-old white male who has been followed for an elevated PSA level. He has no family history of prostate cancer. His postvoid residual in November 2024 was 109 cc. His PSA level ross to 6.4. Prostate MRI revealed a prostate volume of 80 to 0.6 cc, with no suspicious lesions seen. Since that time, he has been diagnosed with pancreatic cancer and is being treated with chemotherapy. He developed urinary retention in late March 2025. He was placed on tamsulosin, and subsequently finasteride, but the urinary retention has persisted. Cystoscopy shows trilobar BPH with an intravesical median lobe. Alternative treatment options have been reviewed, including continued medical therapy with indwelling Marcano catheter (with the hopes that finasteride will provide sufficient prostate shrinkage to allow him to void), intermittent self catheterization, and transurethral resection of the prostate (TURP). He has chosen the latter. - Cardiovascular Cardiovascular: Reports high blood pressure - Genitourinary (Male) Genitourinary: Reports as per HPI Past Medical History Past Medical History: Cancer, Eye Disorder, Hyperlipidemia, Hypertension, Prostate Disorder Additional Past Medical History / Comment(s): Current pancreatic cancer-current chemo, Leaky valve, Dr Sparks watching. Glaucoma and cataracts. past hx. Vertigo. Enlarged prostate-current indwelling catheter for urinary retention, recent adm. @[facility] due to jaundice which was relieved by stent insertion, will be having pancreatic surg. after chemo @[facility] History of Any Multi-Drug Resistant Organisms: None Reported Past Surgical History: Heart Catheterization With Stent Additional Past Surgical History / Comment(s): Vasectomy, cysts removed from hand, port-a-cath inserted, biliary stent inserted @[facility] due to jaundice Past Anesthesia/Blood Transfusion Reactions: No Reported Reaction Additional Past Anesthesia/Blood Transfusion Reaction / Comment(s): no hx. of transfusion Smoking Status: Former smoker - Past Family History Mother Family Medical History: No Reported History Medications and Allergies Home Medications Medication Instructions Recorded Confirmed Type Ascorbic Acid [Vitamin C] 500 mg PO DAILY 04/01/25 06/07/25 History Aspirin [Adult Low Dose Aspirin EC] 81 mg PO HS 04/01/25 06/07/25 History Cholecalciferol [Vitamin D3 (25 75 mcg PO DAILY 04/01/25 06/07/25 History Mcg = 1000 Iu)] Latanoprost [Xelpros] 1 drop BOTH EYES HS 04/01/25 06/07/25 History Multivitamins, Thera [Multivitamin 1 tab PO DAILY 04/01/25 06/07/25 History (formulary)] Simvastatin 10 mg PO HS 04/01/25 06/07/25 History Timolol 0.25% Ophth Soln [Timoptic 1 drop BOTH EYES QAM 04/01/25 06/07/25 History 0.25% Ophth Soln] Vitamin E (Dl,Tocopheryl Acet) 400 unit PO DAILY 04/01/25 06/07/25 History [Vitamin E (400 Iu = 180 mg)] Finasteride [Proscar] 5 mg PO HS 06/07/25 06/07/25 History HYDROcodone/APAP 5-325MG [[place] 1 tab PO Q4H PRN 06/07/25 06/07/25 History 5-325] Lipase/Protease/Amylase [Phyllis Donnelly 2 - 3 each PO TID 06/07/25 06/07/25 History 3,000 Unit Capsule] Mirtazapine [Remeron] 15 mg PO HS PRN 06/07/25 06/07/25 History Ondansetron [Zofran] 4 mg PO Q8HR PRN 06/07/25 06/07/25 History amLODIPine [Norvasc] 5 mg PO QAM 06/07/25 06/07/25 History Allergies Allergy/AdvReac Type Severity Reaction Status Date / Time No Known Allergies Allergy Verified 06/07/25 15:31 Surgical - Exam - General well developed, well nourished, no distress - Respiratory normal respiratory effort - Abdomen Abdomen: soft, non tender, no guarding, no rigid, no rebound - Genitourinary normal penis with no external lesions, testicles non-tender - Rectum Rectum: normal sphincter tone, no masses, other (Prostate moderately enlarged but smooth) - Psychiatric oriented to time, oriented to person, oriented to place, speech is normal, memory intact Assessment and Plan (1) Retention of urine, unspecified Status: Acute Code(s): R33.9 - RETENTION OF URINE, UNSPECIFIED SNOMED Code(s): 823866453 (2) Benign prostatic hyperplasia with lower urinary tract symptoms Status: Acute Code(s): N40.1 - BENIGN PROSTATIC HYPERPLASIA WITH LOWER URINARY TRACT SYMP SNOMED Code(s): 946478224 Plan: Cystoscopy, bipolar transurethral resection of prostate (TURP). The procedure has been reviewed in detail with the patient and his . They have been made aware of potential risks, which include anesthesia, bleeding, infection, vesical neck contracture, urethral stricture, urinary incontinence, erectile dysfunction, retrograde ejaculation, and persistent urinary retention.
[~2025-06-10 11:27] MED LIST changes: -HYDROcodone/APAP 5-325MG 1 EACH TAB PO PRN; +HYDROmorphone 0.5 MG/0.5 ML SYRINGE IVP PRN; -LIDOCAINE 1% INJ 10MG/ML (20 ML MDV) ONE; -MIDAZOLAM 2 MG/2 ML VIAL ONE; -NALOXONE 0.4 MG/ML 1 ML VIAL IV PRN; -PHENYLEPHRINE 10 MG/ML VIAL ONE; -PROPOFOL 10 MG/ML 20 ML VIAL IV ONE; -Pre Op ABX Message 1 EACH MISC MISCELLANE ONE; -fentaNYL (PF) 50 MCG/ML 2 ML AMP ONE
[2025-06-10] MEDS: IV FLUID CONTINUATION 1,000 ML IV ONE ×2 (11:56→14:45)
[2025-06-10] MEDS: LACTATED RINGERS 1,000 ML IV SCH (12:06)
[2025-06-10] MEDS: ONDANSETRON 4 MG/2 ML VIAL IVP ONE (12:07)
[2025-06-10] MEDS: DEXAMETHASONE SOD PHOSPHATE 4 MG/ML 1 ML VIAL IV ONE (12:07)
[2025-06-10] MEDS: GENTAMICIN 80 MG in SODIUM CHLORIDE 0.9% 100 ML IVPB PRN (14:56)
[2025-06-10] MEDS ORDERED: PROPOFOL 10 MG/ML 20 ML VIAL IV ONE (15:18)
[2025-06-10] MEDS ORDERED: LIDOCAINE 1% INJ 10MG/ML (20 ML MDV) ONE (15:18)
[2025-06-10] MEDS ORDERED: FUROSEMIDE 10 MG/ML 2 ML VIAL ONE (15:18)
[2025-06-10] MEDS ORDERED: GLYCOPYRROLATE 0.2 MG/ML 2 ML VIAL ONE (15:18)
[2025-06-10] MEDS ORDERED: ROCURONIUM 10 MG/ML (5 ML VIAL) IV ONE (15:18)
[2025-06-10] MEDS ORDERED: fentaNYL (PF) 50 MCG/ML 2 ML AMP ONE (15:18)
[2025-06-10] MEDS ORDERED: SUCCINYLCHOLINE CHLORIDE 200 MG/10 ML VIAL IV ONE (15:18)
[2025-06-10] MEDS ORDERED: NEOSTIGMINE 1 MG/ML 10 ML VIAL ONE (15:18)
[2025-06-10] MEDS ORDERED: MIDAZOLAM 2 MG/2 ML VIAL ONE (15:18)
[2025-06-10] MEDS: LACTATED RINGERS 1,000 ML IV ONE (17:30)
--- NOTE | 2025-06-10 18:08 | P.OP ---
Date of Procedure: 06/10/25 Preoperative Diagnosis: Urinary retention secondary to BPH Postoperative Diagnosis: Same Procedure(s) Performed: Cystoscopy, bipolar transurethral resection of prostate (TURP) Anesthesia: VICKY Surgeon: Sloan Rosado Estimated Blood Loss (ml): 50 IV fluids (ml): 1,100 Pathology: other (Prostate chips) Condition: stable Disposition: PACU Indications for Procedure: The patient is a 75-year-old white male who has been followed for an elevated PSA level. He has no family history of prostate cancer. His postvoid residual in November 2024 was 109 cc. His PSA level ross to 6.4. Prostate MRI revealed a prostate volume of 80 to 0.6 cc, with no suspicious lesions seen. Since that time, he has been diagnosed with pancreatic cancer and is being treated with chemotherapy. He developed urinary retention in late March 2025. He was placed on tamsulosin, and subsequently finasteride, but the urinary retention has persisted. Cystoscopy shows trilobar BPH with an intravesical median lobe. Alternative treatment options have been reviewed, including continued medical therapy with indwelling Marcano catheter (with the hopes that finasteride will provide sufficient prostate shrinkage to allow him to void), intermittent self catheterization, and transurethral resection of the prostate (TURP). He has chosen the latter. Operative Findings: Complete prostatic occlusion, trilobar configuration. Description of Procedure: The patient was taken in the operating room and placed in the dorsolithotomy position. The external genitalia was prepped and draped sterilely. The 25- [employer] [employer] resectoscope sheath was introduced into the bladder. The bladder was inspected. Both ureteral orifices were of normal anatomic location and configuration, and clear urine effluxed from both. No tumors or foreign bodies were seen. Examination of the prostate revealed complete obstruction with a trilobar configuration. Using the bipolar cutting loop, the median lobe was resected. Next, the lateral lobes were resected down to the surgical capsule. The floor of the prostate was then resected, proximal to the verumontanum. Next, the remaining anterior tissue was resected. The residual apical tissue was then carefully resected, with care taken to avoid injury to the external urinary sphincter. The resection was carried down to the surgical capsule in all 4 quadrants. The prostatic fossa was then carefully examined, and any areas of bleeding were controlled with electrocautery. Excellent hemostasis was attained. The resectoscope was withdrawn into the bulbous urethra. The external urinary sphincter remained intact. The prostatic fossa was open. The [employer] evacuator was used to remove all prostate chips from the bladder. These were saved and sent for pathologic examination. The resectoscope was removed, and a 20 [place]e Marcano catheter was placed. The return was essentially clear. The patient tolerated the procedure well was taken to the recovery room in stable condition.
[2025-06-10 18:31] VITALS: TEMP 97.2
[2025-06-10 18:52] VITALS: RESP 16
[2025-06-10 19:50] VITALS: BP 115/73; PULSE 74
== END 2025-06-10 20:01 | disposition home or self-care (01) ==
LOC: OR 11:27
PROVIDERS: ATTEND Urology
DX: N40.1 Benign prostatic hyperplasia with lower urinary tract symptoms (principal); N13.8 Other obstructive and reflux uropathy; R33.8 Other retention of urine; N41.0 Acute prostatitis; N41.1 Chronic prostatitis; C25.9 Malignant neoplasm of pancreas, unspecified; I10 Essential (primary) hypertension; E78.5 Hyperlipidemia, unspecified; R42 Dizziness and giddiness; Z79.69 Long term (current) use of other immunomodulators and immunosuppressants; Z79.82 Long term (current) use of aspirin; Z79.899 Other long term (current) drug therapy; Z87.891 Personal history of nicotine dependence
CPT/HCPCS: 52601; 88305; J2250; J0330; J1100; J2710; J0690; J2405; J2003; J3010; J1580; J2704; J1596; J1938